=== PATIENT | male | born 1985 | race African-American/Black ===

== ENCOUNTER 2019-03-31 10:03 | Inpatient (IN) ==
[2019-03-31] MEDS ORDERED: ROBAXIN PO PRN (11:46)
[2019-03-31] MEDS ORDERED: SENOKOT PO PRN (11:46)
[2019-03-31] MEDS ORDERED: SEROQUEL PO PRN (11:46)
[2019-03-31] MEDS ORDERED: DULCOLAX PR PRN (11:46)
[2019-03-31] MEDS ORDERED: ZOFRAN ODT PO PRN (11:46)
[2019-03-31] MEDS ORDERED: IMODIUM PO PRN (11:46)
[2019-03-31] MEDS ORDERED: SALINE LOCK IV FLUID XX ONE (11:46)
[2019-03-31] MEDS ORDERED: MOTRIN PO PRN (11:46)
[2019-03-31] MEDS ORDERED: D5W 1,000 ML IV PRN (11:46)
[2019-03-31] MEDS ORDERED: ZOFRAN IV PRN (11:46)
[2019-03-31] MEDS ORDERED: BENTYL PO PRN (11:46)
[2019-03-31] MEDS ORDERED: ATARAX PO PRN (11:46)
[2019-03-31] MEDS ORDERED: MAALOX PLUS LIQUID PO PRN (11:46)
[2019-03-31] MEDS ORDERED: PHENOBARBITAL IV PRN (11:46)
[2019-03-31] MEDS ORDERED: TYLENOL PO PRN (11:46)
[2019-03-31] MEDS ORDERED: TUBERSOL ID ONE (11:46)
[2019-03-31] MEDS ORDERED: DESYREL PO PRN (11:46)
[2019-03-31 12:26] LABS: HEMATOCRIT 36.4 % (42.0-52.0); HEMOGLOBIN 12.7 g/dL (14.0-18.0); MCH 32.5 PG (27-31); MCHC 34.9 g/dL (33-37); MCV 93.1 FL (81-99); MPV 9.3 FL (7.4-10.4); RBC 3.91 XMIL (4.7-6.1); RDW 12.6 % (11.5-14.5); WBC 7.84 X1000 (4.8-10.8)
[2019-03-31 12:27] LABS: INR 0.94
[2019-03-31 12:38] LABS: AMYLASE 87 U/L (20-200); LIPASE 54 U/L (13-60)
[2019-03-31 12:40] LABS: AGAP 12; ALBUMIN 4.4 g/dL (3.5-5.0); ALKALINE PHOSPHATASE 101 U/L (32-122); BUN 6 mg/dL (8-22); CALCIUM 8.5 mg/dL (8.8-10.2); CHLORIDE 102 mmol/L (98-107); COSMO 280; CREATININE 0.5 mg/dL (0.7-1.2); ESTIMATED GFR > 60; GLUCOSE 77 mg/dL (70-104); GOT 347 U/L (10-34); GPT 107 U/L (10-44); POTASSIUM 3.9 mmol/L (3.5-5.1); SODIUM 142 mmol/L (136-145); TCO2 29 mmol/L (25-35); TOTAL PROTEIN 7.4 g/dL (6.3-8.3)
[2019-03-31 13:00] LABS: UR AMPHETAMINES QUAL NONE DETECTED (NONE DETECT); UR BARBITUATES QUAL NONE DETECTED (NONE DETECT); UR BENZODIAZEPIN QUAL NONE DETECTED (NONE DETECT); UR CANNABINOIDS QUAL NONE DETECTED (NONE DETECT); UR COCAINE QUAL PRESUMPTIVE POSITIVE (NONE DETECT); UR METHADONE QUAL NONE DETECTED (NONE DETECT); UR METHAMPHETAMINE QUAL NONE DETECTED (NONE DETECT); UR OPIATES QUAL NONE DETECTED (NONE DETECT); UR OXYCODONE QUAL PRESUMPTIVE POSITIVE (NONE DETECT); UR PCP QUAL NONE DETECTED (NONE DETECT); UR PROPOXYPHENE QUAL NONE DETECTED (NONE DETECT); UR TCA QUAL NONE DETECTED (NONE DETECT)
[2019-03-31] MEDS ORDERED: M.V.I.-12 10 ML, FOLIC ACID 1 MG, MAGNESIUM SULFATE 1 GM, THIAMINE 100 MG in NS 1,000 ML IV ONE (14:00)
[2019-03-31] MEDS: LIBRIUM PO SCH ×3 (14:03→23:32)
[2019-03-31] MEDS: NICODERM PATCH TD PRN (14:03)
[2019-03-31 22:05] LABS: URINE SOURCE CLEAN CATCH
[2019-03-31 22:22] LABS: BILIRUBIN URINE NEGATIVE (NEGATIVE); BLOOD URINE 1+ (NEGATIVE); CLARITY CLEAR (CLEAR); COLOR YELLOW; GLUCOSE URINE NEGATIVE (NEGATIVE); KETONE URINE TRACE mg/dL (NEGATIVE); LEUKOCYTES URINE TRACE (NEGATIVE); NITRITE URINE NEGATIVE (NEGATIVE); PH URINE 6.5; PROTEIN URINE TRACE mg/dL (NEGATIVE); SP GRAVITY URINE 1.015; UROBILINOGEN URINE 4 mg/dL
[2019-03-31 22:28] LABS: URINE EPITHELIAL CELLS <10 /HPF (<10); URINE RBC <10 /HPF (<10); URINE WBC <10 /HPF (<10)
[2019-04-01] MEDS: LIBRIUM PO SCH ×4 (05:53→23:57)
[2019-04-01] MEDS: PROTONIX PO SCH ×2 (05:54→09:18)
[2019-04-01] MEDS: FOLIC ACID PO SCH (09:15)
[2019-04-01] MEDS: VITAMIN B-1 PO SCH (09:15)
[2019-04-01] MEDS: THERA M PLUS PO SCH (09:15)
--- NOTE | 2019-04-01 16:18 | PROGRESS NOTE ---
DATE: 04/01/2019 SUBJECTIVE: Patient notes overall he is feeling better. Still having some muscle aches, but tremors have improved. Nausea/vomiting has improved. Denies any chest pains or palpitation. PHYSICAL EXAMINATION: Vital Signs: Reviewed and stable. Patient is awake, alert, currently in no distress. HEENT: Normocephalic, atraumatic. YOAV. Neck: Supple. No JVD. CARDIOVASCULAR: Regular rate. No murmurs. Chest: Clear, nonlabored. Abdomen: Soft, nondistended, nontender. Extremities: Moves all extremities. Neurologic: No focal changes. Skin: Warm and dry with no rashes. ASSESSMENT: 1. Nausea/vomiting. 2. Abdominal pain. 3. Myalgias. 4. Tremors. 5. Paresthesias. 6. Paroxysmal sweating. 7. Opiate abuse, withdrawal, and stabilization. PLAN: Overall, patient has improved. We will continue high-dose Librium taper. Continue counseling. Further orders as needed. cc: Mendez Wisdom MD
[2019-04-01] MEDS: NICODERM PATCH TD PRN (17:16)
--- NOTE | 2019-04-01 18:34 | HISTORY AND PHYSICAL ---
CHIEF COMPLAINT: Nausea and vomiting. HISTORY OF PRESENT ILLNESS: Patient is a 34-year-old male who presented to [facility] secondary to nausea, vomiting, abdominal pain, tremors, myalgias. He states he has been drinking heavily and would like to get his life back under control. PAST MEDICAL HISTORY: Has no chronic active medical problems. He does note that he has lost 50 to 60 pounds in the last 6 months that he contributes to alcohol. He has had a seizure in the past when stopping Xanax. He has a history of blackouts while on alcohol and Xanax. MEDICATIONS: None. ALLERGIES: None. REVIEW OF SYSTEMS: His CIWA score is 27 secondary to nausea, vomiting, abdominal pain, restlessness, frequent anxiety, frequent jittery, anxious. Does have a history of seizures with withdrawal to benzodiazepines. Denies any current fevers, chills. Denies any dysuria, frequency, urgency, hesitancy, polyuria or polydipsia. Denies skin rashes, or weight gain. He does state that he has tremors if he stops drinking. Has also had auditory hallucinations in the past with stopping alcohol. SUBSTANCE ABUSE HISTORY: The patient has not been in a treatment facility in the past. He was in senior care in 2008 to 2009. Alcohol has created legal, social and financial problems as well as health problems. He has had difficulty with his work due to his tremors. The patient started drinking at 13, currently drinks at least a 5th of liquor a day and up to 8 beers. Started Xanax at 22, has been prescribed that for his anxiety. Started stimulants at 22. Started ecstasy at 21. He has used cocaine in the past. Started pain medications at 25 currently takes 1 every 3 to 4 days. Smokes half a pack a day. FAMILY HISTORY: Noncontributory. PHYSICAL EXAMINATION: VITAL SIGNS: Reviewed. GENERAL: Patient is awake, alert. He is in no current respiratory distress. HEENT: Normocephalic, atraumatic. YOAV. NECK: Supple. No JVD. CARDIOVASCULAR: Regular rate. No murmurs. CHEST: Clear, nonlabored. ABDOMEN: Soft. Nondistended, nontender. EXTREMITIES: Moves all extremities. NEUROLOGIC: No focal changes. SKIN: Warm and dry. No rashes. ASSESSMENT: 1. Nausea and vomiting with abdominal pain. 2. Myalgias. 3. Paresthesias. 4. Paroxysmal sweating. 5. Abdominal pain. 6. Alcohol abuse withdrawal and stabilization. PLAN: We will admit patient to the hospital. We will place him on high-dose Librium taper. Continue counseling. Further orders as needed. cc: Mendez Wisdom MD MTDD
[2019-04-02] MEDS: LIBRIUM PO SCH ×4 (06:10→23:08)
[2019-04-02] MEDS: PROTONIX PO SCH (06:10)
[2019-04-02] MEDS: THERA M PLUS PO SCH (08:12)
[2019-04-02] MEDS: FOLIC ACID PO SCH (08:12)
[2019-04-02] MEDS: VITAMIN B-1 PO SCH (08:12)
[2019-04-02] MEDS ORDERED: PRINIVIL PO SCH (09:00)
[2019-04-02] MEDS: NICODERM PATCH TD PRN (20:06)
[2019-04-03] MEDS: LIBRIUM PO SCH (05:14)
[2019-04-03] MEDS: PROTONIX PO SCH (06:17)
[2019-04-03 07:33] LABS: HEMATOCRIT 35.8 % (42.0-52.0); HEMOGLOBIN 12.4 g/dL (14.0-18.0); MCH 32.5 PG (27-31); MCHC 34.6 g/dL (33-37); MCV 93.7 FL (81-99); MPV 10.7 FL (7.4-10.4); RBC 3.82 XMIL (4.7-6.1); RDW 12.1 % (11.5-14.5); WBC 8.4 X1000 (4.8-10.8)
[2019-04-03 07:38] VITALS: BP 154/97
[2019-04-03 07:46] LABS: AGAP 10; ALBUMIN 3.6 g/dL (3.5-5.0); ALKALINE PHOSPHATASE 75 U/L (32-122); BUN 7 mg/dL (8-22); CALCIUM 8.3 mg/dL (8.8-10.2); CHLORIDE 103 mmol/L (98-107); COSMO 279; CREATININE 0.7 mg/dL (0.7-1.2); ESTIMATED GFR > 60; GLUCOSE 99 mg/dL (70-104); GOT 79 U/L (10-34); GPT 57 U/L (10-44); MAGNESIUM 1.5 mg/dL (1.5-2.7); POTASSIUM 3.8 mmol/L (3.5-5.1); SODIUM 141 mmol/L (136-145); TCO2 28 mmol/L (25-35); TOTAL PROTEIN 6.3 g/dL (6.3-8.3)
[2019-04-03] MEDS ORDERED: REVIA PO SCH (09:00)
--- NOTE | 2019-04-03 10:15 | PROGRESS NOTE ---
DATE: 04/02/2019 SUBJECTIVE: Patient notes that overall, he is feeling a lot better. Muscle aches are better. Tremors have resolved. Denies any current withdrawal symptoms. PHYSICAL EXAMINATION: Vital Signs: Reviewed. He is awake and alert. Blood pressures are still elevated in the 140s and 150s. CV: Regular rate. No murmurs. Chest: Clear and nonlabored. Abdomen: Soft and nondistended. ASSESSMENT: 1. Hypertension. We will start lisinopril. 2. Nausea and vomiting. 3. Abdominal pain. 4. Myalgias. 5. Tremors. 6. Alcohol abuse, withdrawal, and stabilization. 7. Hepatitis, improving. Liver functions have dropped from 370 down to 70. PLAN: We will continue patient in the hospital today. We will wean Librium further. We will continue lisinopril. Continue counseling. Further orders as needed. cc: Mendez Wisdom MD
--- NOTE | 2019-04-03 11:22 | DISCHARGE SUMMARY ---
ADMISSION DATE: 03/31/2019 DISCHARGE DATE: 04/03/2019 DISCHARGE DIAGNOSES: 1. Nausea and vomiting. 2. Abdominal pain. 3. Myalgias. 4. Paresthesias. 5. Tremors. 6. Alcohol abuse withdrawal and stabilization. 7. Hypertension. 8. Hepatitis. CONSULTATIONS: None. PROCEDURES: None. BRIEF HOSPITAL COURSE: Patient is a 34-year-old male who presented to the hospital, treated in the usual fashion, placed on high-dose Librium taper and weaned as tolerated. Thankfully, overall, he has had a uneventful hospital course. He has continued to improve. On discharge, he is awake and alert. He is in no distress. DISPOSITION: Patient will be discharged home. He will follow up as an outpatient with treatment facility of choice. He states that he has an inpatient bed tomorrow morning but would prefer to go home for the night. He is planning on going to his sister's house who does not drink or will not allow him to drink. We discussed with him the use of naltrexone, did start that today. Discussed with patient that he needs to avoid all situations which he has been using and abusing in the past. He needs outpatient life counseling as well as drug counseling. Discussed the use of naltrexone 50 mg daily to help control his withdrawal symptoms. TIME SPENT: Greater than 30 minutes was spent in total care. cc: Mendez Wisdom MD
[2019-04-03] MEDS ORDERED: LIBRIUM PO SCH (13:00)
== END 2019-04-03 09:35 | disposition home or self-care (01) | DRG 897 ==
LOC: P.MEDSURG 11:29
PROVIDERS: ADMIT Family Medicine; ATTEND Family Medicine
CPT/HCPCS: 80053; 80104; 80301; 80305; 80307; 80320; 81001; 82055; 82150; 82948; 83690; 83735; 85027; 85610; 86580; A9270; G0431; G0434; G0477; G0480; G6040; J3411; J3475; J7030; XXXXX